=== PATIENT | female | born 1990 | race African-American/Black ===

== ENCOUNTER 2019-04-06 18:21 | Observation (INO) | payer MEDICAID | END 2019-04-06 20:06 | disposition home or self-care (01) | DRG 566 | LOC: LDRP 18:21 | PROVIDERS: ADMIT Obstetrics & Gynecology; ATTEND Obstetrics & Gynecology | DX: O26.892 Other specified pregnancy related conditions, second trimester (principal); R10.9 Unspecified abdominal pain; Z3A.27 27 weeks gestation of pregnancy | CPT/HCPCS: 59025; 81002; G0378 ==

== ENCOUNTER 2019-05-03 13:18 | Observation (INO) | payer MEDICAID ==
[~2019-05-03] VITALS: Ht 165.1 cm; Wt 59.4 kg
[2019-05-03] MEDS ORDERED: PREN-96 PO (13:39)
== END 2019-05-03 14:05 | disposition home or self-care (01) | DRG 566 ==
LOC: LDRP 13:18
PROVIDERS: ADMIT Obstetrics & Gynecology; ATTEND Obstetrics & Gynecology
DX: O26.853 Spotting complicating pregnancy, third trimester (principal); Z3A.31 31 weeks gestation of pregnancy
CPT/HCPCS: 59025; 81002; G0378

== ENCOUNTER 2019-05-21 15:20 | Observation (INO) | payer MEDICAID ==
[~2019-05-21 15:20] MED LIST: PREN-96 PO
== END 2019-05-21 16:25 | disposition home or self-care (01) | DRG 566 ==
LOC: LDRP 15:20
PROVIDERS: ADMIT Obstetrics & Gynecology; ATTEND Obstetrics & Gynecology
DX: O36.5930 Maternal care for other known or suspected poor fetal growth, third trimester, not applicable or unspecified (principal); Z3A.33 33 weeks gestation of pregnancy
CPT/HCPCS: 59025; 76818; 81002; G0378

== ENCOUNTER 2019-05-28 10:25 | Observation (INO) | payer MEDICAID ==
[2019-05-28] MEDS ORDERED: TERBUTALINE SULFATE 1 MG/ML 1ML VIAL SC SCH (11:45)
[2019-05-28] MEDS ORDERED: TERBUTALINE SULFATE 1 MG/ML 1ML VIAL SC ONE (11:45)
== END 2019-05-28 13:00 | disposition home or self-care (01) | DRG 563 ==
LOC: LDRP 10:25
PROVIDERS: ADMIT Obstetrics & Gynecology; ATTEND Obstetrics & Gynecology
DX: O60.03 Preterm labor without delivery, third trimester (principal); O26.893 Other specified pregnancy related conditions, third trimester; N89.8 Other specified noninflammatory disorders of vagina; Z3A.34 34 weeks gestation of pregnancy
CPT/HCPCS: 59025; 76818; 81002; 96372; G0378; J3105

== ENCOUNTER 2019-06-05 10:21 | Observation (INO) | payer MEDICAID ==
[~2019-06-05] VITALS: Ht 165.1 cm; Wt 64.4 kg
[2019-06-05] MEDS ORDERED: TERBUTALINE SULFATE 1 MG/ML 1ML VIAL SC PRN (11:45)
[2019-06-05] MEDS ORDERED: TERBUTALINE SULFATE 1 MG/ML 1ML VIAL SC ONE (11:52)
== END 2019-06-05 12:47 | disposition home or self-care (01) | DRG 563 ==
LOC: LDRP 10:21
PROVIDERS: ADMIT Obstetrics & Gynecology; ATTEND Obstetrics & Gynecology
DX: O60.03 Preterm labor without delivery, third trimester (principal); O26.893 Other specified pregnancy related conditions, third trimester; R51 Headache; N89.8 Other specified noninflammatory disorders of vagina; Z3A.35 35 weeks gestation of pregnancy
CPT/HCPCS: 59025; 76818; 81002; 96372; G0378; J3105

== ENCOUNTER 2019-06-09 09:00 | Observation (INO) | payer MEDICAID | END 2019-06-09 10:25 | disposition home or self-care (01) | DRG 566 | LOC: LDRP 09:00 | PROVIDERS: ADMIT Specialist; ATTEND Specialist | DX: O26.893 Other specified pregnancy related conditions, third trimester (principal); N89.8 Other specified noninflammatory disorders of vagina; Z3A.36 36 weeks gestation of pregnancy | CPT/HCPCS: 59025; 81002; G0378 ==

== ENCOUNTER 2019-06-12 09:48 | Observation (INO) | payer MEDICAID | END 2019-06-12 10:30 | disposition home or self-care (01) | DRG 566 | LOC: LDRP 09:48 | PROVIDERS: ADMIT Obstetrics & Gynecology; ATTEND Obstetrics & Gynecology | DX: O36.5930 Maternal care for other known or suspected poor fetal growth, third trimester, not applicable or unspecified (principal); O26.893 Other specified pregnancy related conditions, third trimester; N89.8 Other specified noninflammatory disorders of vagina; Z3A.36 36 weeks gestation of pregnancy | CPT/HCPCS: 59025; 76818; 81002; G0378 ==

== ENCOUNTER 2019-06-18 10:25 | Observation (INO) | payer MEDICAID ==
[2019-06-18] MEDS ORDERED: ACET-1156 PO (12:18)
== END 2019-06-18 13:15 | disposition home or self-care (01) | DRG 566 ==
LOC: LDRP 10:25
PROVIDERS: ADMIT Obstetrics & Gynecology; ATTEND Obstetrics & Gynecology
DX: O26.893 Other specified pregnancy related conditions, third trimester (principal); R11.0 Nausea; Z3A.37 37 weeks gestation of pregnancy; Z88.0 Allergy status to penicillin
CPT/HCPCS: 59025; 76818; 81002; G0378

== ENCOUNTER 2019-06-20 08:15 | Observation (INO) | payer MEDICAID ==
[~2019-06-20 08:15] MED LIST changes: +ACET-1156 PO
== END 2019-06-20 09:11 | disposition home or self-care (01) | DRG 566 ==
LOC: LDRP 08:15
PROVIDERS: ADMIT Specialist; ATTEND Specialist
DX: O00.01 Abdominal pregnancy with intrauterine pregnancy (principal); O26.893 Other specified pregnancy related conditions, third trimester; M54.9 Dorsalgia, unspecified; R51 Headache; O21.2 Late vomiting of pregnancy; Z3A.37 37 weeks gestation of pregnancy
CPT/HCPCS: 59025; 81002; G0378

== ENCOUNTER 2019-06-24 09:36 | Observation (INO) | payer MEDICAID | END 2019-06-24 11:40 | disposition home or self-care (01) | DRG 566 | LOC: LDRP 09:36 | PROVIDERS: ADMIT Specialist; ATTEND Specialist | DX: O26.893 Other specified pregnancy related conditions, third trimester (principal); Z3A.38 38 weeks gestation of pregnancy | CPT/HCPCS: 59025; 76818; 81002; G0378 ==

== ENCOUNTER 2019-06-28 08:54 | Observation (INO) | payer MEDICAID ==
[~2019-06-28] VITALS: Ht 30.5 cm; Wt 0.5 kg
[~2019-06-28 08:54] MED LIST changes: -ACET-1156 PO
[2019-07-08] MEDS ORDERED: LACTATED RINGER'S 1,000 ML IV ONE (12:40)
== END 2019-07-08 14:13 | disposition home or self-care (01) | DRG 566 ==
LOC: LDRP 07-08 11:37
PROVIDERS: ADMIT Obstetrics & Gynecology; ATTEND Obstetrics & Gynecology
DX: O48.0 Post-term pregnancy (principal); O26.893 Other specified pregnancy related conditions, third trimester; H53.8 Other visual disturbances; Z3A.40 40 weeks gestation of pregnancy
CPT/HCPCS: 59025; 81002; G0378; 96361

== ENCOUNTER 2019-07-01 19:04 | Observation (INO) | payer MEDICAID ==
[~2019-07-01 19:04] MED LIST changes: +ACET-1156 PO
== END 2019-07-01 20:40 | disposition home or self-care (01) | DRG 566 ==
LOC: LDRP 19:04
PROVIDERS: ADMIT Specialist; ATTEND Specialist
DX: O26.893 Other specified pregnancy related conditions, third trimester (principal); O62.9 Abnormality of forces of labor, unspecified; R11.0 Nausea; Z3A.39 39 weeks gestation of pregnancy
CPT/HCPCS: 59025; 76818; 81002; G0378

== ENCOUNTER 2019-07-03 11:26 | Observation (INO) | payer MEDICAID | END 2019-07-03 13:35 | disposition home or self-care (01) | DRG 566 | LOC: LDRP 11:26 | PROVIDERS: ADMIT Obstetrics & Gynecology; ATTEND Obstetrics & Gynecology | DX: O28.1 Abnormal biochemical finding on antenatal screening of mother (principal); Z3A.39 39 weeks gestation of pregnancy; Z88.0 Allergy status to penicillin; Z91.013 Allergy to seafood; Z91.018 Allergy to other foods | CPT/HCPCS: 59025; 76818; 81002; G0378 ==

== ENCOUNTER 2019-07-05 10:41 | Observation (INO) | payer MEDICAID ==
[~2019-07-05 10:41] MED LIST changes: -ACET-1156 PO
== END 2019-07-05 12:20 | disposition home or self-care (01) | DRG 566 ==
LOC: LDRP 10:41
PROVIDERS: ADMIT Obstetrics & Gynecology; ATTEND Obstetrics & Gynecology
DX: O48.0 Post-term pregnancy (principal); O26.893 Other specified pregnancy related conditions, third trimester; N89.8 Other specified noninflammatory disorders of vagina; Z3A.40 40 weeks gestation of pregnancy
CPT/HCPCS: 59025; 76818; 81002; G0378

== ENCOUNTER 2019-07-10 09:27 | Observation (INO) | payer MEDICAID | END 2019-07-10 10:45 | disposition home or self-care (01) | DRG 566 | LOC: LDRP 09:27 | PROVIDERS: ADMIT Specialist; ATTEND Specialist | DX: O48.0 Post-term pregnancy (principal); Z3A.40 40 weeks gestation of pregnancy; Z88.0 Allergy status to penicillin; Z91.013 Allergy to seafood; Z91.018 Allergy to other foods | CPT/HCPCS: 76818; G0378; 59025; 81002 ==

== ENCOUNTER 2019-07-12 08:20 | Inpatient (IN) | payer MEDICAID ==
[~2019-07-12] VITALS: Ht 1 cm; Wt 1.0 kg
[2019-07-12] MEDS ORDERED: LACT. RINGERS/OXYTOCIN 20UNITS 1,000 ML IV SCH (08:49)
[2019-07-12] MEDS ORDERED: LACTATED RINGER'S 1,000 ML IV SCH (08:49)
[2019-07-12] MEDS ORDERED: LIDOCAINE 2%HCL (LOCAL ANESTH.) INJ 20ML MDV ID PRN (09:00)
[2019-07-12] MEDS ORDERED: WITCH HAZEL-GLYCERIN PAD TOP PRN (09:00)
[2019-07-12] MEDS ORDERED: PROMETHAZINE HCL 25 MG/ML 1ML IV PRN (09:00)
[2019-07-12] MEDS ORDERED: DERMOPLAST 60ML BOTTLE TOP PRN (09:00)
[2019-07-12] MEDS ORDERED: PHISODERM TOP SOLN 240ML BTL TOP PRN (09:00)
[2019-07-12] MEDS ORDERED: NALBUPHINE HCL 10 MG/1ml INJECTION IV PRN (09:00)
[2019-07-12 09:25] LABS: Urine Bacteria FEW /hpf (None Seen); Urine Blood Negative /uL (Negative); Urine Mucus FEW (None Seen); Urine Specific Gravity 1.023 (1.001-1.035); Urine WBC 61 /hpf (0 - 5)
[2019-07-12 09:30] LABS: Basophils # (auto) 0 uL; Basophils % (auto) 0.3 % (0.0-2.0); Eosinophils # (auto) 0 uL; Eosinophils % (auto) 0.5 % (0.0-7.0); Hemoglobin 14.5 g/dL (12.2-16.2); Lymphocytes # (auto) 1.6 uL; Lymphocytes % (auto) 20.2 % (10.0-50.0); Mean Corpuscular Hemoglobin 32.6 pg (28.0-32.0); Mean Corpuscular Hgb Conc. 32.9 g/dL (32.0-36.0); Mean Corpuscular Volume 99.1 fL (80.0-100.0); Monocytes # (auto) 0.7 uL; Monocytes % (auto) 9.1 % (0.0-12.0); Neutrophils # (auto) 5.5 uL; Neutrophils % (auto) 69.9 % (37.0-80.0); Platelet Count (auto) 215 10^3/uL (140-450); Red Blood Cells 4.44 10^6/uL (4.0-5.20); Red Cell Distribution Width 14.7 % (11.8-14.3); White Blood Cell 7.9 10^3/uL (4.4-10.8)
[2019-07-12 09:40] LABS: BUN/Creatinine Ratio 10.7; Calcium 8.6 mg/dL (8.5-10.1); Potassium 3.7 mmol/L (3.5-5.1)
[2019-07-12 09:43] LABS: Bilirubin, Total 1.6 mg/dL (0.2-1.0); Total Protein 7.5 g/dL (6.4-8.2)
[2019-07-12 09:44] LABS: INR < 0.93 (0.9-1.15); Partial Thromboplastin Time 28.5 sec (23.64-32.05)
[2019-07-12] MEDS ORDERED: NALBUPHINE HCL 10 MG/1ml INJECTION ONE (14:23)
[2019-07-12] MEDS ORDERED: TERBUTALINE SULFATE 1 MG/ML 1ML VIAL SC ONE (17:00)
[2019-07-12] MEDS ORDERED: SODIUM CHLORIDE 0.9% 300 ML IUPC ONE (17:08)
[2019-07-12] MEDS ORDERED: SODIUM CHLORIDE 0.9% 1,000 ML IUPC SCH (17:08)
[2019-07-12] MEDS ORDERED: LACTATED RINGER'S 1,000 ML IV ONE (18:49)
[2019-07-12] MEDS ORDERED: LIDOCAINE HCL 2 %PF INJ 10ML AMP IJ ONE ×2 (19:00→23:15)
[2019-07-12] MEDS ORDERED: fentaNYL CITRATE 100 MCG/2 ML VL IV ONE ×2 (19:00→23:15)
[2019-07-12] MEDS ORDERED: NALOXONE HCL 0.4 MG/ML VIAL IV ONE (19:00)
[2019-07-12] MEDS ORDERED: ePHEDrine SULFATE 50 MG/ML AMP IV ONE (19:00)
[2019-07-12] MEDS ORDERED: fentaNYL W ROPIVACAINE 150 ML EPI SCH (19:00)
[2019-07-12] MEDS ORDERED: SODIUM BICARBONATE 8.4 % INJ 50ML VIAL IV ONE (23:26)
[2019-07-13] VITALS (7 sets, daily range): BP systolic 106–129; BP diastolic 55–65
--- NOTE | 2019-07-13 02:00 | NUR ---
Ambulation: Patient OOB with standby assistance by RN. Patient ambulated to bathroom with steady gait. Patient able to void without difficulty 500cc. [facility] teaching provided with returned demonstration by patient. Clean gown provided and bed linen changed. Patient ambulated back to bed with steady gait and no distress noted.
[2019-07-13] MEDS ORDERED: RHO (D) IMMUNE GLOBULIN 300 MCG INJ IM ONE (02:30)
--- NOTE | 2019-07-13 02:30 | NUR ---
Teaching: Reviewed information in [facility] booklet with patient. Discussed benefits of and risks associated with not . Discussed different positions, proper latch, feeding cues, and baby-led . Provided information of medication side effects related to . All questions and concerns addressed at this time. Patient verbalized understanding of information.
[2019-07-13] MEDS ORDERED: ACETAMINOPHEN 325 MG TAB PO PRN (03:00)
--- NOTE | 2019-07-13 06:25 | NUR ---
Report received from Laurita Lake RN. Assumed care. Addendum: 07/13/19 at 0855 by Emiliana Fuentes RN Amended: Links added.
[2019-07-13 07:06] LABS: RPR Non Reactive (Non Reactive)
[2019-07-13] MEDS: IBUPROFEN 600 MG TAB PO PRN ×2 (14:13→18:53)
--- NOTE | 2019-07-13 18:05 | NUR ---
Report given to Laurita Lake RN on stable pt. Relinquished care. Addendum: 07/13/19 at 1827 by Emiliana Fuentes RN Amended: Links added.
[2019-07-14 03:00] VITALS: BP 101/62
[2019-07-14 07:00] VITALS: BP 116/59
--- NOTE | 2019-07-14 10:40 | NUR ---
Discharge: Discharge instructions given as ordered. Pt encouraged to follow up with [facility] as instructed. All questions and concerns addressed. Patient verbalized understanding. Medication reconciliation completed and copy given to patient. All required/requested vaccines given and copies of vaccinations given to patient. Patient encouraged to prepare to depart unit.
--- NOTE | 2019-07-14 11:00 | NUR ---
Discharge: Patient taken to vehicle via ambulation steady gait with all personal belongings, accompanied by staff and family member. No distress noted at time of departure, no adverse changes in status since initial assessment.
== END 2019-07-14 11:00 | disposition home or self-care (01) | DRG 560 ==
LOC: LDRP 08:20 → OBSVTOIN 12:20
PROVIDERS: ADMIT Specialist; ATTEND Specialist
PROC: 10E0XZZ Delivery of Products of Conception, External Approach (ICD-10-PCS; principal; 2019-07-13)
PROC: 3E0234Z Introduction of Serum, Toxoid and Vaccine into Muscle, Percutaneous Approach (ICD-10-PCS; 2019-07-13)
PROC: 0HQ9XZZ Repair Perineum Skin, External Approach (ICD-10-PCS; 2019-07-13)
PROC: 3E0R3BZ Introduction of Anesthetic Agent into Spinal Canal, Percutaneous Approach (ICD-10-PCS; 2019-07-13)
PROC: 00HU33Z Insertion of Infusion Device into Spinal Canal, Percutaneous Approach (ICD-10-PCS; 2019-07-13)
DX: O48.0 Post-term pregnancy (principal); O26.893 Other specified pregnancy related conditions, third trimester; O77.0 Labor and delivery complicated by meconium in amniotic fluid; O69.1XX0 Labor and delivery complicated by cord around neck, with compression, not applicable or unspecified; O70.0 First degree perineal laceration during delivery; Z37.0 Single live birth; Z3A.41 41 weeks gestation of pregnancy; Z88.0 Allergy status to penicillin; Z67.41 Type O blood, Rh negative
CPT/HCPCS: 36415; 51702; 59025; 59409; 80053; 81001; 81002; 84112; 85025; 85610; 85730; 86592; 86850; 86900; 86901; 90384; 94760; 96361; 96365; 96366; 96374; G0378; J2590; J3010